=== PATIENT | female | born 2000 ===

== ENCOUNTER 2020-06-21 15:53 | Inpatient (IN) | payer MEDICAID, OTHER ==
[2020-06-21] MEDS ORDERED: LACTATED RINGERS 1,000 ML ONE (16:49)
[2020-06-21] MEDS ORDERED: SUCCINYLCHOLINE CHLORIDE 200 MG/10 ML INJ MDV ONE (17:20)
[2020-06-21] MEDS ORDERED: propofoL 200 MG/20 ML VIAL IV ONE (17:20)
[2020-06-21 17:23] LABS: Hematocrit 42.2 % (30.3-42.9); Hemoglobin 14.8 gm/dl (10.1-14.3); Mean Corpuscular HGB Conc 35 % (30-34); Mean Corpuscular Volume 86 fl (79-97); Platelet Count 153 K/mm3 (140-440); Red Blood Count 4.93 M/mm3 (3.65-5.03); Red Cell Distribution Width 15.5 % (13.2-15.2)
[2020-06-21] MEDS ORDERED: ONDANSETRON 4 MG/2 ML INJ ONE ×2 (17:26)
[2020-06-21] MEDS ORDERED: WATER FOR IRRIG STERILE 1,500 ML BOTTLE IR ONE (17:28)
[2020-06-21] MEDS ORDERED: SODIUM CHLORIDE 0.9% IRR 1,500 ML BOTTLE IR ONE (17:28)
[2020-06-21] MEDS ORDERED: HYDROmorphone 1 MG/1 ML INJ ONE ×2 (17:34)
[2020-06-21] MEDS ORDERED: OXYTOCIN DRIP 60,000 MILLIUNITS/1,000 ML BAG IV ONE (17:34)
[2020-06-21] MEDS ORDERED: METHYLERGONOVINE MALEATE 0.2 MG/ML VIAL IM ONE (17:38)
[2020-06-21] MEDS ORDERED: ROCURONIUM 50 MG/5 ML INJ IV ONE (17:43)
[2020-06-21] MEDS ORDERED: miSOPROStol 200 MCG TAB ONE (17:44)
[2020-06-21] MEDS ORDERED: BUPIVACAINE/PF (0.5%) 5 MG/1 ML 30 ML VIAL INFILTRATI ONE (17:51)
[2020-06-21] MEDS ORDERED: dexAMETHasone 20 MG/5 ML VIAL ONE (17:51)
[2020-06-21] MEDS ORDERED: OXYTOCIN 10 UNIT/1 ML INJ ONE (17:52)
[2020-06-21] MEDS ORDERED: NEOSTIGMINE 10MG/10 ML INJ MDV ONE (18:04)
[2020-06-21] MEDS ORDERED: GLYCOPYRROLATE 0.4 MG/2 ML INJ ONE (18:04)
--- NOTE | 2020-06-21 18:08 | History and Physical Report ---
History of Present Illness Date of examination: 06/21/20 Date of admission: 06/21/20 17:22 History of present illness: 20y/o @ 39+3 weeks who presents to L&D with irregular contractions. While under observation, the tracing demonstrated bradycardic episodes. The patient course is complicated by STD exposure, glucose intolerance, and marginal cord insertion. She denies any vaginal bleeding or leakage of fluid. Past History Past Medical History: no pertinent history Past Surgical History: no surgical history Social history: single - Obstetrical History Expected Date of Delivery: 06/25/20 Actual Gestation: 39 Week(s) 5 Day(s) : 2 Para: 0 Hx # Term Pregnancies: 0 Number of Pregnancies: 0 Spontaneous Abortions: 1 Induced : 0 Number of Living Children: 0 Medications and Allergies Allergies Allergy/AdvReac Type Severity Reaction Status Date / Time Penicillins Allergy Rash Verified 06/21/20 16:25 Home Medications Medication Instructions Recorded Confirmed Last Taken Type Ipratropium/Albuterol Sulfate 2 puff IH PRN 06/21/20 06/21/20 06/14/20 History Vitamin 1 tab PO DAILY 06/21/20 06/21/20 06/21/20 09:00 History ZyrTEC 10mg cap 1 tab PO DAILY PRN 06/21/20 06/21/20 06/21/20 09:00 History Ibuprofen [Motrin] 800 mg PO Q8HR PRN #60 tablet 06/22/20 Unknown Rx oxyCODONE /ACETAMINOPHEN [Percocet 1 tab PO Q6HR PRN #30 tablet 06/22/20 Unknown Rx 5/325] Review of Systems Genitourinary: pelvic pain, contractions, no leakage of fluid - Vital Signs Vital signs: Vital Signs Pulse BP 82 129/85 06/21/20 16:21 06/21/20 16:21 Temp Pulse Resp BP Pulse Ox 98.5 F 106 H 18 131/82 100 06/21/20 16:23 06/21/20 17:19 06/21/20 16:23 06/21/20 16:43 06/21/20 17:19 - Physical Exam Breasts: Positive: deferred Cardiovascular: Regular rate Lungs: Positive: Clear to auscultation Abdomen: Positive: normal appearance Results Result Diagrams: 04/17/21 05:56 Abnormal lab results 06/21/20 Range/Units 17:00 WBC 14.0 H (4.5-11.0) K/mm3 Hgb 14.8 H (10.1-14.3) gm/dl MCHC 35 H (30-34) % RDW 15.5 H (13.2-15.2) % All other labs normal. Assessment and Plan - Patient Problems (1) Non-reassuring electronic monitoring tracing Current Visit: Yes Status: Acute Plan to address problem: patient taken emergent for a primary delivery (2) bradycardia Current Visit: Yes Status: Acute
--- NOTE | 2020-06-21 18:10 | Procedure Note ---
OB Delivery Note - Delivery Date of Delivery: 06/21/20 Surgeon: GRABIEL BURKS Estimated blood loss: other (800 mL) - Section Preop diagnosis: nonreassuring FHR tracing Postop diagnosis: same section procedure: section, primary low transverse Disposition: PACU Complications: none - A at 1 minute: 6 at 5 minutes: 6 (apgars 6/6/8 weight 5lbs 2oz) Infant Gender: Male (Weight 5 pounds 2 ounces)
[2020-06-21] MEDS ORDERED: NALOXONE 0.4 MG/1 ML INJ IV PRN ×2 (18:14→19:24)
[2020-06-21] MEDS ORDERED: WITCH HAZEL/ GLYCERIN PAD TP PRN (18:14)
[2020-06-21] MEDS ORDERED: LANOLIN/ZINC/DIMETHICONE (LANSINOH) 7 GM TP PRN (18:14)
--- NOTE | 2020-06-21 18:14 | Operative Report ---
Operative Report Operative Report: Date of surgery: June 21, 2020 Preoperative diagnosis: at 39+3 weeks; nonreassuring heart rate tracing; late decelerations Postoperative diagnosis: Same as above Procedure: Primary low transverse delivery; emergent Surgeon: Avis Juan M.D. Anesthesia: General endotracheal anesthesia Estimated blood loss: 600 mL IV fluids: 800 mL Urine output: 100 mL Findings: Liveborn male weight 5 pounds 2 ounces with apgars of 6/6/8 Indications: 20-year-old -0-1-0 at 39+3 weeks who presents with irregular uterine contractions. During observation in triage the patient was noted to have multiple late decelerations. The patient was taken for an emergent montserrat arean delivery. Procedure: The patient was taken to the operating room and given general anesthesia without complication. She was prepped and draped in a normal sterile fashion. A Pfannenstiel skin incision was made down to layer the fascia which was nicked in the midline extended laterally with the Bovie cautery. The superior aspect of the rectus fascia was grasped with Gheens clamps x2 and the rectus muscles off sharply. This was done in inferior fashion as well. The rectus muscle midline and peritoneum entered bluntly. An Tiburcio retractor was then inserted. A bladder blade was placed. The vesicouterine peritoneum was then entered sharply with Metzenbaum scissors. A bladder flap was created digitally. A low transverse uterine incision was then made and extended digitally. There was thick meconium stained fluid fluid upon entry into the uterine cavity. The head was delivered through the incision with fundal pressure. The cord was clamped and cut x2 and was immediately passed off to pediatrics. The placenta was then manually extracted. The uterus was then exteriorized and cleared of clots and debris. The uterine incision was then closed in a running locked fashion with 0 Vicryl additional imbricating stitch was applied for 2 layer closure. Additional [id number] stitches were placed for hemostasis. The posterior cul-de-sac was then copiously irrigated. The uterus was replaced back into the abdomen and pelvis were the gutters were then irrigated. The Tiburcio retractor was then removed. The peritoneum was then reapproximated with 3-0 Vicryl incorporating the rectus muscle. The fascia was then closed with 0 Vicryl in a running fashion. The skin was then reapproximated with 3-0 Monocryl on a Lele needle subcuticular fashion. Steri-Strips to place across the incision and a Crede procedures performed at the end of the surgery. A pressure dressing was applied to the incision. The surgery productive of a liveborn male infant with Apgars of 6/6/8 and weight 5 pounds 2 ounces. The patient was taken to the recovery room in stable condition. All sponge laps and needle counts correct x2.
[2020-06-21] MEDS ORDERED: miSOPROStol 200 MCG TAB PR ONE (18:15)
[2020-06-21] MEDS ORDERED: MAGNESIUM HYDROXIDE (MOM) ORAL LIQD UDC PO PRN (18:15)
[2020-06-21] MEDS ORDERED: MORPHINE 4 MG/1 ML INJ IV PRN (18:15)
[2020-06-21] MEDS ORDERED: OXYTOCIN DRIP 30 UNITS/500 ML BAG IV SCH (19:00)
--- NOTE | 2020-06-21 19:23 | Anesthesia Day of Surgery ---
Anesthesia Day of Surgery - Day of Surgery Patient Examined: Yes Patient H&P Reviewed: Yes Patient is NPO: Yes Beta Blockers: No Cardiac Clearance: No Pulmonary Clearance: No Shabbir's Test: N/A
[2020-06-21] MEDS ORDERED: HYDROmorphone 1 MG/1 ML INJ IV PRN (19:24)
[2020-06-21] MEDS ORDERED: ONDANSETRON 4 MG/2 ML INJ IV PRN (19:24)
--- NOTE | 2020-06-21 19:24 | Anesthesia Consultation ---
Anesthesia Consult and Med Hx Date of service: 06/21/20 - Airway Anesthetic Teeth Evaluation: Good ROM Head & Neck: Adequate Mental/Hyoid Distance: Adequate Mallampati Class: Class II Intubation Access Assessment: Good - Pulmonary Exam CTA: Yes - Cardiac Exam Cardiac Exam: RRR - Pre-Operative Health Status ASA Pre-Surgery Classification: ASA2, Emergency Proposed Anesthetic Plan: General - Pulmonary Hx Smoking: No Hx Asthma: Yes Hx Respiratory Symptoms: No SOB: No COPD: No Home Oxygen Therapy: No Hx Pneumonia: No Hx Sleep Apnea: No - Cardiovascular System Hx Hypertension: No Hx Coronary Artery Disease: No Hx Heart Attack/AMI: No Hx Angina: No Hx Percutaneous Transluminal Coronary Angioplasty (PTCA): No Hx Cardia Arrhythmia: No Hx Pacemaker: No Hx Internal Defibrillator: No Hx Valvular Heart Disease: No Hx Heart Murmur: No Hx Peripheral Vascular Disease: No - Central Nervous System Hx Neuromuscular Disorder: No Hx Seizures: No CVA: No Hx Back Pain: No Hx Psychiatric Problems: No - Gastrointestinal Hx Ulcer: No Hx Gastroesophageal Reflux Disease: Yes - Endocrine Hx Renal Disease: No Hx End Stage Renal Disease: No Hx Cirrhosis: No Hx Liver Disease: No Hx Insulin Dependent Diabetes: No Hx Non-Insulin Dependent Diabetes: No Hx Thyroid Disease: No Hx Hypothyroidism: No Hx Hyperthyroidism: No - Hematic Hx Anemia: No Hx Sickle Cell Disease: No - Other Systems Hx Alcohol Use: No Hx Substance Use: No Hx Cancer: No Hx Obesity: Yes
--- NOTE | 2020-06-21 19:42 | Progress Note ---
Objective - Constitutional Vitals: Vital Signs - 12hr 06/21/20 06/21/20 06/21/20 16:21 16:23 16:28 Temperature 98.5 F Pulse Rate 82 97 H 95 H Respiratory 18 Rate Blood Pressure 129/85 O2 Sat by Pulse 98 98 Oximetry 06/21/20 06/21/20 06/21/20 16:33 16:38 16:43 Temperature Pulse Rate 83 83 91 H Respiratory Rate Blood Pressure 131/82 O2 Sat by Pulse 99 99 98 Oximetry 06/21/20 06/21/20 06/21/20 16:48 16:53 16:57 Temperature Pulse Rate 90 91 H 94 H Respiratory Rate Blood Pressure O2 Sat by Pulse 99 98 93 Oximetry 06/21/20 06/21/20 06/21/20 16:58 17:13 17:14 Temperature Pulse Rate 83 94 H Respiratory Rate Blood Pressure O2 Sat by Pulse 98 91 100 Oximetry 06/21/20 17:19 Temperature Pulse Rate 106 H Respiratory Rate Blood Pressure O2 Sat by Pulse 100 Oximetry - Labs CBC & Chem 7: 06/21/20 17:00 Labs: Abnormal lab results 06/21/20 Range/Units 17:00 WBC 14.0 H (4.5-11.0) K/mm3 Hgb 14.8 H (10.1-14.3) gm/dl MCHC 35 H (30-34) % RDW 15.5 H (13.2-15.2) % Regional Anesthesia Block - Regional Anesthesia Block Start Time: 19:04 Stop Time: 19:06 Performed By:: ROBERT KENNEDY Procedure: Patient consented for TAP block for post surgical pain management. Patient identified, monitors placed, and time out performed. TAP identified bilaterally via ultrasound. Skin prepped bilaterally and [22g stimuplex] needle advanced to the TAP. [Marcaine 0.22% 35ml] injected under ultrasound guidance on the [left] side. [Marcaine 0.22% 35ml] injected under ultrasound guidance on the [right] side. Negative aspiration every 5mL, No change in heart rate or rhythm. Patient tolerated the procedure well. No apparent complications seen.
[2020-06-21] MEDS: D5W/LACTATED RINGERS 1,000 ML IV SCH (22:24)
[2020-06-22] MEDS: KETOROLAC 30 MG/1 ML INJ IV PRN ×2 (04:12→10:36)
[2020-06-22] MEDS: D5W/LACTATED RINGERS 1,000 ML IV SCH (05:01)
[2020-06-22 06:28] LABS: Hematocrit 34.9 % (30.3-42.9); Hemoglobin 12.1 gm/dl (10.1-14.3)
--- NOTE | 2020-06-22 06:42 | Post Anesthesia Evaluation ---
- Post Anesthesia Evaluation Patient Participated: Yes Airway Patent: Yes Stable Respiratory Function: Yes Nausea/Vomiting: No Temp > 96.8F: Yes Pain Manageable: Yes Adequeate Hydration: Yes Anesthesia Complications: No Block Receding Appropriately: Yes Patient on Ventilator: No
--- NOTE | 2020-06-22 13:19 | Progress Note ---
Assessment and Plan - Patient Problems (1) delivery delivered Current Visit: Yes Status: Acute Plan to address problem: Routine postoperative care Subjective - Subjective Date of service: 06/22/20 Interval history: Patient is postop day status post an emergent delivery for nonreassuring heart rate tracing. The patient reports feeling well. She has had positive flatus. She is tolerating clear diet without complication. Patient reports: appetite normal, voiding normally, pain well controlled : doing well Objective - Vital Signs Latest vital signs: Vital Signs Temp Pulse Resp BP BP Pulse Ox 06/22/20 12:56 98.6 F 82 18 130/76 98 06/22/20 10:36 20 06/22/20 09:00 98.0 F 104 H 18 122/81 92 06/22/20 04:12 20 06/22/20 04:08 97.9 F 81 18 111/73 97 06/22/20 01:03 98.2 F 67 18 117/77 98 06/21/20 20:25 97.9 F 66 20 100 06/21/20 19:25 72 13 113/75 100 06/21/20 19:10 67 12 112/70 100 06/21/20 18:50 69 10 L 121/76 100 06/21/20 18:40 65 15 111/64 99 06/21/20 18:35 72 22 110/72 98 06/21/20 18:30 73 16 108/73 99 06/21/20 18:25 98.0 F 74 16 109/65 96 06/21/20 17:19 106 H 100 06/21/20 17:14 94 H 100 06/21/20 17:13 91 06/21/20 16:58 83 98 06/21/20 16:57 94 H 93 06/21/20 16:53 91 H 98 06/21/20 16:48 90 99 06/21/20 16:43 91 H 131/82 98 06/21/20 16:38 83 99 06/21/20 16:33 83 99 06/21/20 16:28 95 H 98 06/21/20 16:23 98.5 F 97 H 18 98 06/21/20 16:21 82 129/85 Intake and Output 06/21/20 06/22/20 06/22/20 22:59 06:59 14:59 Intake Total 1500 1427.083 Output Total 350 1700 Balance 1150 -272.917 Intake: IV 1500 827.083 D5lr 1,000 ml @ 125 mls/ 827.083 hr IV DIRECT CONSTANTINE Rx#: [id number] Oral 600 Output: Urine 350 1700 Indwelling Catheter 1700 Other: Total, Intake Amount 240 Total, Output Amount 400 Weight 83.007 kg - Exam Incision: Present: dressed - Labs Labs: Abnormal lab results 06/21/20 Range/Units 17:00 WBC 14.0 H (4.5-11.0) K/mm3 Hgb 14.8 H (10.1-14.3) gm/dl MCHC 35 H (30-34) % RDW 15.5 H (13.2-15.2) %
[2020-06-22] MEDS: oxyCODONE /ACETAMINOPHEN 5-325MG TAB PO PRN (17:58)
[2020-06-23] MEDS: IBUPROFEN 600 MG TAB PO PRN ×2 (00:47→18:20)
--- NOTE | 2020-06-23 10:52 | Progress Note ---
Assessment and Plan - Patient Problems (1) Non-reassuring electronic monitoring tracing Current Visit: Yes Status: Acute Plan to address problem: patient doing well discharge home (2) bradycardia Current Visit: Yes Status: Acute Subjective - Subjective Date of service: 06/23/20 Interval history: Patient without complaints. Tolerating diet. Found to be covid positive. No respiratory issues Patient reports: appetite normal, voiding normally, pain well controlled : doing well Objective - Vital Signs Latest vital signs: Vital Signs Temp Pulse Resp BP BP Pulse Ox 06/23/20 08:58 97.6 F 74 20 113/74 100 06/23/20 01:30 97.7 F 82 18 103/63 98 06/22/20 17:58 20 06/22/20 16:25 98.8 F 76 18 135/82 98 06/22/20 12:56 98.6 F 82 18 130/76 98 Intake and Output 06/22/20 06/23/20 06/23/20 22:59 06:59 14:59 Intake Total 240 360 240 Balance 240 360 240 Intake: Oral 240 360 240 Other: Total, Intake Amount 240 240 240 # Voids Indwelling Catheter 1 1 Void 1 1 - Exam Abdomen: Present: normal appearance, soft - Labs Labs: Abnormal lab results 06/22/20 Range/Units Unknown Coronavirus (PCR) Positive A (Negative)
--- NOTE | 2020-06-23 10:53 | Discharge Summary ---
Providers - Providers Date of Admission: 06/21/20 17:22 Date of discharge: 06/23/20 Attending physician: GRABIEL BURKS Primary care physician: GRABIEL BURKS Hospitalization Reason for admission: other ( distress) Delivery: Procedure: section, primary low transverse Incision: normal Discharge diagnosis: IUP at term delivered Hospital course: Patient presented to triage with bradycardia. She was taken emergently for a primary . Covid positive. Postop uneventful Condition at discharge: Good Disposition: DC-01 TO HOME OR SELFCARE - Discharge Diagnoses (1) Non-reassuring electronic monitoring tracing Status: Acute (2) bradycardia Status: Acute Plan - Discharge Medications Prescriptions: Ibuprofen [Motrin] 800 mg PO Q8HR PRN #60 tablet PRN Reason: Pain , Severe (7-10) oxyCODONE /ACETAMINOPHEN [Percocet 5/325] 1 tab PO Q6HR PRN #30 tablet PRN Reason: Pain - Provider Discharge Summary Activity: no sex for 6 weeks, no heavy lifting 4 weeks, no strenuous exercise Diet: routine Instructions: routine Additional instructions: [] Smoking cessation referral if applicable(refer to patient education folder for contact #) [] Refer to [facility] Booklet Call your doctor immediately for: * Fever > 100.5 * Heavy vaginal bleeding ( >1 pad per hour) * Severe persistent headache * Shortness of breath * Reddened, hot, painful area to leg or breast * schedule postop in 2 weeks - Follow up plan
[2020-06-23] MEDS: oxyCODONE /ACETAMINOPHEN 5-325MG TAB PO PRN (12:20)
[2020-06-23 18:55] VITALS: BP 122/75
== END 2020-06-23 20:28 | disposition home or self-care (01) | DRG 765 ==
LOC: TRG 15:53 → APU 15:54 → LD 17:12 → TRG 17:21 → LD 17:22 → OB 19:41
PROVIDERS: ADMIT Obstetrics & Gynecology; ATTEND Obstetrics & Gynecology
PROC: 10D00Z1 Extraction of Products of Conception, Low, Open Approach (ICD-10-PCS; principal; 2020-06-21)
DX: O76 Abnormality in fetal heart rate and rhythm complicating labor and delivery (principal); U07.1 COVID-19; O98.52 Other viral diseases complicating childbirth; O99.214 Obesity complicating childbirth; K21.9 Gastro-esophageal reflux disease without esophagitis; O99.62 Diseases of the digestive system complicating childbirth; Z37.0 Single live birth; Z3A.39 39 weeks gestation of pregnancy
CPT/HCPCS: 36415; 59025; 85014; 85018; 85027; 86592; 86850; 86900; 86901; 88307; 96360; G0378; J0330; J1100; J1170; J1885; J2405; J2590; J2704; J2710; J3490; J7120; J7121; U0003

== ENCOUNTER 2021-11-24 14:42 | Inpatient (IN) | payer OTHER ==
[2021-11-24] MEDS ORDERED: LACTATED RINGERS 1,000 ML IV ONE (15:57)
[2021-11-24] MEDS ORDERED: BETAMET ACET/BETAMET NA PH 6 MG/ML INJ 5 ML MDV IM SCH (18:00)
[2021-11-24] MEDS ORDERED: SIMETHICONE 80 MG CHEW TAB PO PRN (18:14)
[2021-11-24] MEDS ORDERED: ACETAMINOPHEN 325 MG TAB PO PRN (18:14)
[2021-11-24] MEDS ORDERED: ONDANSETRON 4 MG/2 ML INJ IV PRN (18:14)
[2021-11-24] MEDS ORDERED: SODIUM CHLORIDE NASAL SPRAY 44ML NS PRN (18:14)
[2021-11-24] MEDS ORDERED: DOCUSATE SODIUM 100 MG CAP PO PRN (18:14)
[2021-11-24] MEDS ORDERED: LACTATED RINGERS 1,000 ML IV SCH (19:00)
[2021-11-24 19:18] LABS: Bacteria,Urine 1+ /HPF (Negative); Mucus,Urine 3+ /HPF
[2021-11-24 19:20] LABS: Color,Urine Yellow (Yellow)
--- NOTE | 2021-11-24 20:06 | Ultrasound Report ---
ULTRASOUND OBSTETRIC INDICATION / CLINICAL INFORMATION: c/o leaking. - Clinical Gestational Age (GA) in weeks, days: 35 weeks 2 days TECHNIQUE: Transabdominal. COMPARISON: None available. FINDINGS: Single intrauterine . Heart Rate: 129 beats per minute. Position: cephalic. Amniotic Fluid Volume: normal Amniotic Fluid Index (MISTI) in cm (if calculated): 12.6 cm. Maternal Adnexa: No significant abnormality. BREATHING MOVEMENT = 2 GROSS BODY MOVEMENT = 2 TONE = 2 QUALITATIVE AMNIOTIC FLUID VOLUME = 2 TOTAL BIOPHYSICAL SCORE = 8/8 IMPRESSION: 1. Single, living intrauterine with normal amniotic fluid index. No acute process. 2. Normal biophysical profile score of 8/8. Signer Name: Saeed Fulton MD Signed: 11/24/2021 8:02 PM Workstation Name: [id number]
[2021-11-24] MEDS: ERYTHROMYCIN LACTOBIONATE 250 MG in SODIUM CHLORIDE 0.9% 100 ML IV SCH (20:14)
[2021-11-24 20:27] LABS: Basophils # (Auto) 0.1 K/mm3 (0.0-0.1); Basophils % (Auto) 0.8 % (0.0-1.8); Eosinophils # (Auto) 0.1 K/mm3 (0.0-0.4); Eosinophils % (Auto) 0.8 % (0.0-4.3); Hematocrit 36.4 % (30.3-42.9); Hemoglobin 11.8 gm/dl (10.1-14.3); Lymphocytes # (Auto) 1.5 K/mm3 (1.2-5.4); Lymphocytes % (Auto) 14.3 % (13.4-35.0); Mean Corpuscular HGB Conc 33 % (30-34); Mean Corpuscular Volume 77 fl (79-97); Monocytes # (Auto) 0.6 K/mm3 (0.0-0.8); Monocytes % (Auto) 5.3 % (0.0-7.3); Platelet Count 196 K/mm3 (140-440); Red Cell Distribution Width 14.8 % (13.2-15.2)
--- NOTE | 2021-11-24 21:06 | History and Physical Report ---
History of Present Illness Date of examination: 11/24/21 Date of admission: 11/24/21 18:14 Chief complaint: My water broke History of present illness: Pt is a 21 year old [place] 12/07/21 at 35w2d who present with leakage of fluid since 8 am on 11/24/21. She denies contractions and vaginal bleeding. She has had care at [facility] since transfer into care 20 wks complicated by previous section, glucose intolerance and asthma. Her GB S status is unknown. She does report a penicillin allergy causing sensation that her throat is closi ng. Past History Past Medical History: asthma, other (eczema ) Past Surgical History: section Social history: no significant social history, - Obstetrical History Expected Date of Delivery: 12/27/21 Actual Gestation: 35 Week(s) 3 Day(s) : 3 Para: 1 Hx # Term Pregnancies: 1 Number of Pregnancies: 0 Spontaneous Abortions: 1 Induced : 0 Number of Living Children: 1 Medications and Allergies Allergies Allergy/AdvReac Type Severity Reaction Status Date / Time Penicillins Allergy Rash Verified 06/21/20 16:25 Home Medications Medication Instructions Recorded Confirmed Last Taken Type Ipratropium/Albuterol Sulfate 2 puff IH PRN 06/21/20 06/21/20 06/14/20 History Vitamin 1 tab PO DAILY 06/21/20 06/21/20 06/21/20 09:00 History ZyrTEC 10mg cap 1 tab PO DAILY PRN 06/21/20 06/21/20 06/21/20 09:00 History Ibuprofen [Motrin] 800 mg PO Q8HR PRN #60 tablet 06/22/20 Unknown Rx oxyCODONE /ACETAMINOPHEN [Percocet 1 tab PO Q6HR PRN #30 tablet 06/22/20 Unknown Rx 5/325] Active Meds: Active Medications Acetaminophen (Acetaminophen 325 Mg Tab) 650 mg PO Q4H PRN PRN Reason: Pain MILD(1-3)/Fever >100.5/LORD Betamethasone Acet/Betameth SodPhos (Betamet Acet/Betamet Na Ph 6 Mg/Ml Inj 5 Ml Mdv) 12 mg IM Q24HR CONSTANTINE Stop: 11/25/21 10:01 Last Admin: 11/24/21 18:20 Dose: 12 mg Clindamycin HCl (Clindamycin 300 Mg Cap) 300 mg PO Q6HR CONSTANTINE; Protocol Docusate Sodium (Docusate Sodium 100 Mg Cap) 100 mg PO Q12H PRN PRN Reason: Constipation Erythromycin (Erythromycin Base [address]) 250 mg PO Q8HR CONSTANTINE; Protocol Stop: 12/01/21 21:59 Clindamycin HCl (Cleocin 900 Mg/50 Ml) 900 mg in 50 mls @ 100 mls/hr IV Q8H CONSTANTINE; Protocol Stop: 11/26/21 12:29 Last Admin: 11/24/21 19:39 Dose: 100 mls/hr Erythromycin Lactobionate 250 (mg/ Sodium Chloride) 100 mls @ 100 mls/hr IV Q6H CONSTANTINE; Protocol Stop: 11/26/21 15:29 Last Admin: 11/24/21 20:14 Dose: 100 mls/hr Lactated Ringer's (Lactated Ringers) 1,000 mls @ 125 mls/hr IV DIRECT CONSTANTINE Multivitamins/Iron/Calcium ( [id number]-Uz Fumarate-Folic Acid Vit Tab) 1 each PO QDAY CONSTANTINE Nitrofurantoin Macrocrystals (Nitrofurantoin Monohyd/M-Cryst 100 Mg Cap) 100 mg PO Q12HR CONSTANTINE Ondansetron HCl (Ondansetron 4 Mg/2 Ml Inj) 4 mg IV Q6H PRN PRN Reason: Nausea And Vomiting Simethicone (Simethicone 80 Mg Chew Tab) 80 mg PO Q6H PRN PRN Reason: Gas pain Sodium Chloride (Sodium Chloride Nasal [place] 44ml) 2 spray NS Q4H PRN PRN Reason: Congestion Review of Systems All systems: negative - Vital Signs Vital signs: Vital Signs Pulse BP 86 113/77 11/24/21 15:44 11/24/21 15:44 Temp Pulse Resp BP Pulse Ox 98.4 F 87 17 108/62 97 11/24/21 19:36 11/24/21 20:58 11/24/21 19:36 11/24/21 20:37 11/24/21 20:58 - Physical Exam Breasts: Positive: deferred Abdomen: Positive: soft (gravid) - Obstetrical FHR: auscultation normal Uterine Contraction Monitor Mode: External Cervical Dilatation: 0 (per RN ) Uterine Contraction Pattern: Irregular Uterine Tone Measurement Phase: Resting Uterine Contraction Intensity: Mild Results Result Diagrams: 11/24/21 19:58 Abnormal lab results 11/24/21 11/24/21 11/24/21 Range/Units 16:10 16:10 19:58 MCV 77 L (79-97) fl MCH 25 L (28-32) pg Seg Neutrophils % 78.8 H (40.0-70.0) % Seg Neutrophils # 8.5 H (1.8-7.7) K/mm3 Urine WBC (Auto) 18.0 H (0.0-6.0) /HPF Membranes Rupture Positive A (Negative) All other labs normal. Assessment and Plan A: IUP at 35w2d PPROM Previous x 1- desires TOLAC Asthma Glucose Intolerance Cystitis GBS unknown- PCN allergy P: Admit to antepartum service Begin Latency antibiotics Initiate Betamethasone course Initiate Macrobid Continuous monitoring Closely monitor maternal and status
[2021-11-25] MEDS: ERYTHROMYCIN LACTOBIONATE 250 MG in SODIUM CHLORIDE 0.9% 100 ML IV SCH ×4 (02:08→23:26)
[2021-11-25] MEDS: NITROFURANTOIN MONOHYD/M-CRYST 100 MG CAP PO SCH ×3 (02:09→22:12)
[2021-11-25] MEDS: PRENATAL VIT27-FE FUMARATE-FOLIC ACID VIT TAB PO SCH (11:29)
--- NOTE | 2021-11-25 12:55 | Progress Note ---
Assessment and Plan - Patient Problems (1) premature rupture of membranes Current Visit: Yes Status: Acute Plan to address problem: Expectant management Continue antibiotic therapy will proceed with delivery by 36 weeks likely via Subjective - Subjective Date of service: 11/25/21 Interval history: 21-year-old -0-1-1 at 35+3 weeks admitted for premature rupture membranes. Patient is receiving steroid therapy and antibiotics. Discussed the plan of care with the patient to proceed with delivery for signs and symptoms of chorioamnionitis. Patient will be delivered by 36 weeks. Patient reports: no new complaints Objective - Vital Signs Vital Signs: Vital Signs - 12hr 11/25/21 11/25/21 11/25/21 00:55 01:00 01:05 Temperature Pulse Rate 73 85 77 Respiratory Rate Blood Pressure Blood Pressure [Left] O2 Sat by Pulse 95 95 96 Oximetry O2 Sat by Pulse Oximetry [ Bilateral Throughout] 11/25/21 11/25/21 11/25/21 01:10 01:15 01:19 Temperature Pulse Rate 83 78 88 Respiratory Rate Blood Pressure Blood Pressure [Left] O2 Sat by Pulse 96 96 94 Oximetry O2 Sat by Pulse Oximetry [ Bilateral Throughout] 11/25/21 11/25/21 11/25/21 01:20 01:25 01:30 Temperature Pulse Rate 78 69 88 Respiratory Rate Blood Pressure Blood Pressure [Left] O2 Sat by Pulse 97 95 97 Oximetry O2 Sat by Pulse Oximetry [ Bilateral Throughout] 11/25/21 11/25/21 11/25/21 01:35 01:36 01:40 Temperature 98.1 F Pulse Rate 68 68 72 Respiratory 18 Rate Blood Pressure 111/58 Blood Pressure 111/58 [Left] O2 Sat by Pulse 96 97 Oximetry O2 Sat by Pulse Oximetry [ Bilateral Throughout] 11/25/21 11/25/21 11/25/21 01:45 01:50 01:55 Temperature Pulse Rate 68 74 74 Respiratory Rate Blood Pressure Blood Pressure [Left] O2 Sat by Pulse 95 95 95 Oximetry O2 Sat by Pulse Oximetry [ Bilateral Throughout] 11/25/21 11/25/21 11/25/21 01:58 02:00 02:04 Temperature Pulse Rate 74 71 73 Respiratory Rate Blood Pressure Blood Pressure [Left] O2 Sat by Pulse 94 95 94 Oximetry O2 Sat by Pulse Oximetry [ Bilateral Throughout] 11/25/21 11/25/2111/25/22 02:05 02:10 02:15 Temperature Pulse Rate 76 81 93 H Respiratory Rate Blood Pressure Blood Pressure [Left] O2 Sat by Pulse 95 97 98 Oximetry O2 Sat by Pulse Oximetry [ Bilateral Throughout] 11/25/21 11/25/21 11/25/21 02:20 02:27 02:32 Temperature Pulse Rate 96 H 80 93 H Respiratory Rate Blood Pressure Blood Pressure [Left] O2 Sat by Pulse 96 97 97 Oximetry O2 Sat by Pulse Oximetry [ Bilateral Throughout] 11/25/21 11/25/21 11/25/21 02:34 02:37 02:42 Temperature Pulse Rate 87 79 85 Respiratory Rate Blood Pressure 126/66 Blood Pressure [Left] O2 Sat by Pulse 97 97 Oximetry O2 Sat by Pulse Oximetry [ Bilateral Throughout] 11/25/21 11/25/21 11/25/21 02:47 02:52 02:57 Temperature Pulse Rate 79 81 85 Respiratory Rate Blood Pressure Blood Pressure [Left] O2 Sat by Pulse 97 98 98 Oximetry O2 Sat by Pulse Oximetry [ Bilateral Throughout] 11/25/21 11/25/21 11/25/21 03:02 03:07 03:12 Temperature Pulse Rate 76 78 93 H Respiratory Rate Blood Pressure Blood Pressure [Left] O2 Sat by Pulse 98 97 97 Oximetry O2 Sat by Pulse Oximetry [ Bilateral Throughout] 11/25/21 11/25/21 11/25/21 03:17 03:22 03:27 Temperature Pulse Rate 71 74 83 Respiratory Rate Blood Pressure Blood Pressure [Left] O2 Sat by Pulse 97 98 97 Oximetry O2 Sat by Pulse Oximetry [ Bilateral Throughout] 11/25/21 11/25/21 11/25/21 03:32 03:35 03:37 Temperature Pulse Rate 85 75 91 H Respiratory Rate Blood Pressure 113/54 Blood Pressure [Left] O2 Sat by Pulse 97 95 Oximetry O2 Sat by Pulse Oximetry [ Bilateral Throughout] 11/25/21 11/25/21 11/25/21 03:38 03:42 03:47 Temperature Pulse Rate 79 79 78 Respiratory Rate Blood Pressure Blood Pressure [Left] O2 Sat by Pulse 93 97 97 Oximetry O2 Sat by Pulse Oximetry [ Bilateral Throughout] 11/25/21 11/25/21 11/25/21 03:52 03:57 04:02 Temperature Pulse Rate 97 H 89 80 Respiratory Rate Blood Pressure Blood Pressure [Left] O2 Sat by Pulse 96 97 97 Oximetry O2 Sat by Pulse Oximetry [ Bilateral Throughout] 11/25/21 11/25/21 11/25/21 04:07 04:08 04:12 Temperature Pulse Rate 84 85 80 Respiratory Rate Blood Pressure Blood Pressure [Left] O2 Sat by Pulse 95 94 96 Oximetry O2 Sat by Pulse Oximetry [ Bilateral Throughout] 11/25/21 11/25/21 11/25/21 04:17 04:22 04:25 Temperature Pulse Rate 73 73 79 Respiratory Rate Blood Pressure Blood Pressure [Left] O2 Sat by Pulse 95 95 94 Oximetry O2 Sat by Pulse Oximetry [ Bilateral Throughout] 11/25/21 11/25/21 11/25/21 04:27 04:30 04:32 Temperature Pulse Rate 80 70 106 H Respiratory Rate Blood Pressure Blood Pressure [Left] O2 Sat by Pulse 95 94 96 Oximetry O2 Sat by Pulse Oximetry [ Bilateral Throughout] 11/25/21 11/25/21 11/25/21 04:35 04:36 04:37 Temperature 98.2 F Pulse Rate 102 H 87 80 Respiratory 17 Rate Blood Pressure 98/45 Blood Pressure 98/45 [Left] O2 Sat by Pulse 94 97 Oximetry O2 Sat by Pulse Oximetry [ Bilateral Throughout] 11/25/21 11/25/21 11/25/21 04:42 04:44 04:47 Temperature Pulse Rate 94 H 86 115 H Respiratory Rate Blood Pressure Blood Pressure [Left] O2 Sat by Pulse 97 94 95 Oximetry O2 Sat by Pulse Oximetry [ Bilateral Throughout] 11/25/21 11/25/21 11/25/21 04:50 04:52 04:57 Temperature Pulse Rate 84 100 H 93 H Respiratory Rate Blood Pressure Blood Pressure [Left] O2 Sat by Pulse 94 96 98 Oximetry O2 Sat by Pulse Oximetry [ Bilateral Throughout] 11/25/21 11/25/21 11/25/21 05:02 05:07 05:12 Temperature Pulse Rate 84 91 H 87 Respiratory Rate Blood Pressure Blood Pressure [Left] O2 Sat by Pulse 97 96 96 Oximetry O2 Sat by Pulse Oximetry [ Bilateral Throughout] 11/25/21 11/25/21 11/25/21 05:17 05:22 05:27 Temperature Pulse Rate 87 115 H 95 H Respiratory Rate Blood Pressure Blood Pressure [Left] O2 Sat by Pulse 97 96 98 Oximetry O2 Sat by Pulse Oximetry [ Bilateral Throughout] 11/25/21 11/25/21 11/25/21 05:32 05:35 05:37 Temperature Pulse Rate 104 H 86 105 H Respiratory Rate Blood Pressure 90/50 Blood Pressure [Left] O2 Sat by Pulse 97 97 Oximetry O2 Sat by Pulse Oximetry [ Bilateral Throughout] 11/25/21 11/25/21 11/25/21 05:42 05:47 05:52 Temperature Pulse Rate 88 97 H 77 Respiratory Rate Blood Pressure Blood Pressure [Left] O2 Sat by Pulse 97 97 98 Oximetry O2 Sat by Pulse Oximetry [ Bilateral Throughout] 11/25/21 11/25/21 11/25/21 05:57 06:02 06:07 Temperature Pulse Rate 78 80 77 Respiratory Rate Blood Pressure Blood Pressure [Left] O2 Sat by Pulse 97 96 97 Oximetry O2 Sat by Pulse Oximetry [ Bilateral Throughout] 11/25/21 11/25/21 11/25/21 06:12 06:17 06:22 Temperature Pulse Rate 84 83 89 Respiratory Rate Blood Pressure Blood Pressure [Left] O2 Sat by Pulse 96 98 97 Oximetry O2 Sat by Pulse Oximetry [ Bilateral Throughout] 11/25/21 11/25/21 11/25/21 06:27 06:31 06:32 Temperature Pulse Rate 77 76 79 Respiratory Rate Blood Pressure Blood Pressure [Left] O2 Sat by Pulse 95 94 95 Oximetry O2 Sat by Pulse Oximetry [ Bilateral Throughout] 11/25/21 11/25/21 11/25/21 06:35 06:37 06:41 Temperature Pulse Rate 76 79 79 Respiratory Rate Blood Pressure 93/55 Blood Pressure [Left] O2 Sat by Pulse 95 94 Oximetry O2 Sat by Pulse Oximetry [ Bilateral Throughout] 11/25/21 11/25/21 11/25/21 06:42 06:47 06:52 Temperature Pulse Rate 81 81 77 Respiratory Rate Blood Pressure Blood Pressure [Left] O2 Sat by Pulse 95 94 94 Oximetry O2 Sat by Pulse Oximetry [ Bilateral Throughout] 11/25/21 11/25/21 11/25/21 06:57 07:02 07:04 Temperature Pulse Rate 76 97 H 80 Respiratory Rate Blood Pressure Blood Pressure [Left] O2 Sat by Pulse 94 95 93 Oximetry O2 Sat by Pulse Oximetry [ Bilateral Throughout] 11/25/21 11/25/21 11/25/21 07:07 07:09 07:12 Temperature Pulse Rate 77 72 76 Respiratory Rate Blood Pressure Blood Pressure [Left] O2 Sat by Pulse 95 94 95 Oximetry O2 Sat by Pulse Oximetry [ Bilateral Throughout] 11/25/21 11/25/21 11/25/21 07:15 07:17 07:21 Temperature Pulse Rate 71 74 79 Respiratory Rate Blood Pressure Blood Pressure [Left] O2 Sat by Pulse 94 95 94 Oximetry O2 Sat by Pulse Oximetry [ Bilateral Throughout] 11/25/21 11/25/21 11/25/21 07:22 07:27 07:32 Temperature Pulse Rate 79 86 82 Respiratory Rate Blood Pressure Blood Pressure [Left] O2 Sat by Pulse 95 97 96 Oximetry O2 Sat by Pulse Oximetry [ Bilateral Throughout] 11/25/21 11/25/21 11/25/21 07:35 07:37 07:42 Temperature Pulse Rate 84 93 H 95 H Respiratory Rate Blood Pressure 85/50 Blood Pressure [Left] O2 Sat by Pulse 97 98 Oximetry O2 Sat by Pulse Oximetry [ Bilateral Throughout] 11/25/21 11/25/21 11/25/21 07:51 07:56 08:01 Temperature Pulse Rate 96 H 81 86 Respiratory Rate Blood Pressure Blood Pressure [Left] O2 Sat by Pulse 99 97 96 Oximetry O2 Sat by Pulse Oximetry [ Bilateral Throughout] 11/25/21 11/25/21 11/25/21 08:06 08:11 08:16 Temperature Pulse Rate 80 77 80 Respiratory Rate Blood Pressure Blood Pressure [Left] O2 Sat by Pulse 96 97 97 Oximetry O2 Sat by Pulse Oximetry [ Bilateral Throughout] 11/25/21 11/25/21 11/25/21 08:21 08:26 08:31 Temperature Pulse Rate 87 86 86 Respiratory Rate Blood Pressure Blood Pressure [Left] O2 Sat by Pulse 98 98 97 Oximetry O2 Sat by Pulse Oximetry [ Bilateral Throughout] 11/25/21 11/25/21 11/25/21 08:35 08:36 08:41 Temperature Pulse Rate 78 106 H 91 H Respiratory Rate Blood Pressure 119/56 Blood Pressure [Left] O2 Sat by Pulse 97 97 Oximetry O2 Sat by Pulse Oximetry [ Bilateral Throughout] 11/25/21 11/25/21 11/25/21 08:46 08:51 08:56 Temperature Pulse Rate 87 86 101 H Respiratory Rate Blood Pressure Blood Pressure [Left] O2 Sat by Pulse 98 96 97 Oximetry O2 Sat by Pulse Oximetry [ Bilateral Throughout] 11/25/21 11/25/21 11/25/21 09:01 09:06 09:11 Temperature Pulse Rate 92 H 85 95 H Respiratory Rate Blood Pressure Blood Pressure [Left] O2 Sat by Pulse 96 97 98 Oximetry O2 Sat by Pulse Oximetry [ Bilateral Throughout] 11/25/21 11/25/21 11/25/21 09:16 09:21 09:26 Temperature Pulse Rate 95 H 88 87 Respiratory Rate Blood Pressure Blood Pressure [Left] O2 Sat by Pulse 98 97 97 Oximetry O2 Sat by Pulse Oximetry [ Bilateral Throughout] 11/25/21 11/25/21 11/25/21 09:31 09:36 09:41 Temperature Pulse Rate 83 89 80 Respiratory Rate Blood Pressure 121/66 Blood Pressure [Left] O2 Sat by Pulse 98 97 99 Oximetry O2 Sat by Pulse 100 Oximetry [ Bilateral Throughout] 11/25/21 11/25/21 11/25/21 09:46 09:51 09:56 Temperature Pulse Rate 92 H 107 H 93 H Respiratory Rate Blood Pressure Blood Pressure [Left] O2 Sat by Pulse 98 98 97 Oximetry O2 Sat by Pulse Oximetry [ Bilateral Throughout] 11/25/21 11/25/21 11/25/21 10:01 10:06 10:11 Temperature Pulse Rate 80 89 94 H Respiratory Rate Blood Pressure Blood Pressure [Left] O2 Sat by Pulse 96 96 95 Oximetry O2 Sat by Pulse Oximetry [ Bilateral Throughout] 11/25/21 11/25/21 11/25/21 10:12 10:16 10:21 Temperature Pulse Rate 90 87 75 Respiratory Rate Blood Pressure Blood Pressure [Left] O2 Sat by Pulse 94 97 95 Oximetry O2 Sat by Pulse Oximetry [ Bilateral Throughout] 11/25/21 11/25/21 11/25/21 10:26 10:31 10:35 Temperature Pulse Rate 75 79 85 Respiratory Rate Blood Pressure 115/65 Blood Pressure [Left] O2 Sat by Pulse 97 96 Oximetry O2 Sat by Pulse Oximetry [ Bilateral Throughout] 11/25/21 11/25/21 11/25/21 10:36 10:41 10:46 Temperature Pulse Rate 85 85 91 H Respiratory Rate Blood Pressure Blood Pressure [Left] O2 Sat by Pulse 98 96 98 Oximetry O2 Sat by Pulse Oximetry [ Bilateral Throughout] 11/25/21 11/25/21 11/25/21 10:51 10:56 11:01 Temperature Pulse Rate 98 H 89 87 Respiratory Rate Blood Pressure Blood Pressure [Left] O2 Sat by Pulse 98 97 99 Oximetry O2 Sat by Pulse Oximetry [ Bilateral Throughout] 11/25/21 11/25/21 11/25/21 11:06 11:11 11:16 Temperature Pulse Rate 84 86 84 Respiratory Rate Blood Pressure Blood Pressure [Left] O2 Sat by Pulse 97 96 98 Oximetry O2 Sat by Pulse Oximetry [ Bilateral Throughout] 11/25/21 11/25/21 11/25/21 11:21 11:32 11:35 Temperature Pulse Rate 88 94 H 96 H Respiratory Rate Blood Pressure 107/58 Blood Pressure [Left] O2 Sat by Pulse 97 98 Oximetry O2 Sat by Pulse Oximetry [ Bilateral Throughout] 11/25/21 11/25/21 11/25/21 11:37 11:42 11:47 Temperature Pulse Rate 102 H 108 H 105 H Respiratory Rate Blood Pressure Blood Pressure [Left] O2 Sat by Pulse 98 98 97 Oximetry O2 Sat by Pulse Oximetry [ Bilateral Throughout] 11/25/21 11/25/21 11/25/21 11:52 11:57 12:02 Temperature Pulse Rate 114 H 103 H 91 H Respiratory Rate Blood Pressure Blood Pressure [Left] O2 Sat by Pulse 98 97 97 Oximetry O2 Sat by Pulse Oximetry [ Bilateral Throughout] 11/25/21 11/25/21 11/25/21 12:07 12:12 12:17 Temperature Pulse Rate 81 106 H 86 Respiratory Rate Blood Pressure Blood Pressure [Left] O2 Sat by Pulse 97 97 97 Oximetry O2 Sat by Pulse Oximetry [ Bilateral Throughout] 11/25/21 11/25/21 11/25/21 12:22 12:27 12:32 Temperature Pulse Rate 118 H 104 H 100 H Respiratory Rate Blood Pressure Blood Pressure [Left] O2 Sat by Pulse 97 98 98 Oximetry O2 Sat by Pulse Oximetry [ Bilateral Throughout] 11/25/21 11/25/21 11/25/21 12:34 12:37 12:42 Temperature Pulse Rate 88 100 H 105 H Respiratory Rate Blood Pressure 115/55 Blood Pressure [Left] O2 Sat by Pulse 98 97 Oximetry O2 Sat by Pulse Oximetry [ Bilateral Throughout] 11/25/21 11/25/21 12:47 12:52 Temperature Pulse Rate 101 H 88 Respiratory Rate Blood Pressure Blood Pressure [Left] O2 Sat by Pulse 97 96 Oximetry O2 Sat by Pulse Oximetry [ Bilateral Throughout] - Labs Labs: Abnormal Labs 11/24/21 11/24/21 11/24/21 16:10 16:10 19:58 MCV 77 L MCH 25 L Seg Neutrophils % 78.8 H Seg Neutrophils # 8.5 H Urine WBC (Auto) 18.0 H Membranes Rupture Positive A Laboratory Results - last 24 hr 11/24/21 11/24/21 11/24/21 16:10 16:10 19:58 WBC 10.7 RBC 4.70 Hgb 11.8 Hct 36.4 MCV 77 L MCH 25 L MCHC 33 RDW 14.8 Plt Count 196 Lymph % (Auto) 14.3 [place] % (Auto) 5.3 Eos % (Auto) 0.8 Baso % (Auto) 0.8 Lymph # (Auto) 1.5 [place] # (Auto) 0.6 Eos # (Auto) 0.1 Baso # (Auto) 0.1 Seg Neutrophils % 78.8 H Seg Neutrophils # 8.5 H Urine Color Yellow Urine Turbidity Hazy Specific [place] (Man) 1.025 Ur Protein (Man) 2+ Ur Ketones (Man) Negative Ur Nitrite (Man) Positive Ur Reducing Substances Not Reportable Urine Bilirubin (Man) Negative Urine Ictotest Not Reportable Leukocyte Esterase (Man) Small Urine WBC (Auto) 18.0 H Urine RBC (Auto) 4.0 U Epithel Cells (Auto) 7.0 Urine Bacteria (Auto) 1+ Urine RBC (Manual) Trace Urine Mucus 3+ Membranes Rupture Positive A SARS-CoV-2 (PCR) Blood Type Antibody Screen 11/24/21 11/25/21 21:50 10:31 WBC RBC Hgb Hct MCV MCH MCHC RDW Plt Count Lymph % (Auto) [place] % (Auto) Eos % (Auto) Baso % (Auto) Lymph # (Auto) [place] # (Auto) Eos # (Auto) Baso # (Auto) Seg Neutrophils % Seg Neutrophils # Urine Color Urine Turbidity Specific [place] (Man) Ur Protein (Man) Ur Ketones (Man) Ur Nitrite (Man) Ur Reducing Substances Urine Bilirubin (Man) Urine Ictotest Leukocyte Esterase (Man) Urine WBC (Auto) Urine RBC (Auto) U Epithel Cells (Auto) Urine Bacteria (Auto) Urine RBC (Manual) Urine Mucus Membranes Rupture SARS-CoV-2 (PCR) Negative Blood Type O POSITIVE Antibody Screen Negative
[2021-11-25] MEDS ORDERED: BETAMET ACET/BETAMET NA PH 6 MG/ML INJ 5 ML MDV IM ONE (18:27)
[2021-11-26] MEDS: ERYTHROMYCIN LACTOBIONATE 250 MG in SODIUM CHLORIDE 0.9% 100 ML IV SCH ×3 (06:11→18:14)
[2021-11-26] MEDS: NITROFURANTOIN MONOHYD/M-CRYST 100 MG CAP PO SCH (10:51)
[2021-11-26] MEDS: PRENATAL VIT27-FE FUMARATE-FOLIC ACID VIT TAB PO SCH (10:51)
[2021-11-26] MEDS ORDERED: SODIUM CHLORIDE 0.9% 1000 ML 1,000 ML ONE (11:53)
--- NOTE | 2021-11-26 15:09 | Progress Note ---
Assessment and Plan - Patient Problems (1) premature rupture of membranes Current Visit: Yes Status: Acute Plan to address problem: Expectant management Deliver for signs and symptoms of chorioamnionitis Will schedule delivery at 36 weeks Subjective - Subjective Date of service: 11/26/21 Interval history: 21-year-old -0-1-1 at 35+4 weeks admitted for premature rupture membranes. The patient is currently without any significant complaints. She is having some intermittent contractions but denies any vaginal bleeding. She remains afebrile. Patient reports: no new complaints Objective - Vital Signs Vital Signs: Vital Signs - 12hr 11/26/21 11/26/21 11/26/21 03:09 03:14 03:19 Temperature Pulse Rate 75 64 81 Respiratory Rate Blood Pressure Blood Pressure [Left] O2 Sat by Pulse 96 96 95 Oximetry 11/26/21 11/26/21 11/26/21 03:20 03:24 03:27 Temperature Pulse Rate 84 80 80 Respiratory Rate Blood Pressure Blood Pressure [Left] O2 Sat by Pulse 94 96 93 Oximetry 11/26/21 11/26/21 11/26/21 03:29 03:34 03:35 Temperature Pulse Rate 76 73 78 Respiratory Rate Blood Pressure 94/50 Blood Pressure [Left] O2 Sat by Pulse 95 96 Oximetry 11/26/21 11/26/21 11/26/21 03:39 03:44 03:49 Temperature Pulse Rate 59 L 61 56 L Respiratory Rate Blood Pressure Blood Pressure [Left] O2 Sat by Pulse 97 97 96 Oximetry 11/26/21 11/26/21 11/26/21 03:54 03:59 04:04 Temperature Pulse Rate 58 L 56 L 62 Respiratory Rate Blood Pressure Blood Pressure [Left] O2 Sat by Pulse 96 96 96 Oximetry 11/26/21 11/26/21 11/26/21 04:09 04:14 04:19 Temperature Pulse Rate 60 58 L 61 Respiratory Rate Blood Pressure Blood Pressure [Left] O2 Sat by Pulse 96 96 96 Oximetry 11/26/21 11/26/21 11/26/21 04:24 04:29 04:32 Temperature Pulse Rate 60 61 68 Respiratory Rate Blood Pressure Blood Pressure [Left] O2 Sat by Pulse 96 96 94 Oximetry 11/26/21 11/26/21 11/26/21 04:34 04:35 04:41 Temperature Pulse Rate 69 67 80 Respiratory Rate Blood Pressure 99/57 Blood Pressure [Left] O2 Sat by Pulse 90 99 Oximetry 11/26/21 11/26/21 11/26/21 04:46 04:51 04:56 Temperature Pulse Rate 82 74 68 Respiratory Rate Blood Pressure Blood Pressure [Left] O2 Sat by Pulse 96 97 96 Oximetry 11/26/21 11/26/21 11/26/21 05:01 05:06 05:11 Temperature Pulse Rate 67 73 74 Respiratory Rate Blood Pressure Blood Pressure [Left] O2 Sat by Pulse 98 98 97 Oximetry 11/26/21 11/26/21 11/26/21 05:16 05:21 05:26 Temperature Pulse Rate 73 76 69 Respiratory Rate Blood Pressure Blood Pressure [Left] O2 Sat by Pulse 96 98 98 Oximetry 11/26/21 11/26/21 11/26/21 05:31 05:35 05:36 Temperature Pulse Rate 82 77 76 Respiratory Rate Blood Pressure 78/45 Blood Pressure [Left] O2 Sat by Pulse 95 97 Oximetry 11/26/21 11/26/21 11/26/21 05:41 05:46 05:51 Temperature Pulse Rate 74 71 67 Respiratory Rate Blood Pressure Blood Pressure [Left] O2 Sat by Pulse 97 97 98 Oximetry 11/26/21 11/26/21 11/26/21 05:56 06:01 06:06 Temperature Pulse Rate 76 81 62 Respiratory Rate Blood Pressure Blood Pressure [Left] O2 Sat by Pulse 96 97 97 Oximetry 11/26/21 11/26/21 11/26/21 06:11 06:12 06:14 Temperature 98.4 F Pulse Rate 66 64 64 Respiratory Rate Blood Pressure 100/53 Blood Pressure 100/53 [Left] O2 Sat by Pulse 96 Oximetry 11/26/21 11/26/21 11/26/21 06:16 06:21 06:26 Temperature Pulse Rate 63 66 61 Respiratory Rate Blood Pressure Blood Pressure [Left] O2 Sat by Pulse 97 95 95 Oximetry 11/26/21 11/26/21 11/26/21 06:28 06:31 06:35 Temperature Pulse Rate 63 62 58 L Respiratory Rate Blood Pressure 110/55 Blood Pressure [Left] O2 Sat by Pulse 94 96 Oximetry 11/26/21 11/26/21 11/26/21 06:36 06:41 06:42 Temperature Pulse Rate 59 L 66 65 Respiratory Rate Blood Pressure Blood Pressure [Left] O2 Sat by Pulse 98 95 94 Oximetry 11/26/21 11/26/21 11/26/21 06:46 06:48 06:51 Temperature Pulse Rate 62 73 71 Respiratory Rate Blood Pressure Blood Pressure [Left] O2 Sat by Pulse 95 94 98 Oximetry 11/26/21 11/26/21 11/26/21 06:56 07:01 07:06 Temperature Pulse Rate 70 67 74 Respiratory Rate Blood Pressure Blood Pressure [Left] O2 Sat by Pulse 97 97 98 Oximetry 11/26/21 11/26/21 11/26/21 07:13 07:18 07:23 Temperature Pulse Rate 69 65 74 Respiratory Rate Blood Pressure Blood Pressure [Left] O2 Sat by Pulse 99 98 96 Oximetry 11/26/21 11/26/21 11/26/21 07:28 07:33 07:35 Temperature Pulse Rate 80 70 67 Respiratory Rate Blood Pressure 101/55 Blood Pressure [Left] O2 Sat by Pulse 98 97 Oximetry 11/26/21 11/26/21 11/26/21 07:38 07:40 07:43 Temperature Pulse Rate 81 75 74 Respiratory Rate Blood Pressure Blood Pressure [Left] O2 Sat by Pulse 96 93 96 Oximetry 11/26/21 11/26/21 11/26/21 07:48 07:50 07:53 Temperature Pulse Rate 68 73 77 Respiratory Rate Blood Pressure Blood Pressure [Left] O2 Sat by Pulse 95 94 96 Oximetry 11/26/21 11/26/21 11/26/21 07:58 08:03 08:08 Temperature Pulse Rate 77 66 71 Respiratory Rate Blood Pressure Blood Pressure [Left] O2 Sat by Pulse 96 96 97 Oximetry 11/26/21 11/26/21 11/26/21 08:13 08:18 08:23 Temperature Pulse Rate 80 69 71 Respiratory Rate Blood Pressure Blood Pressure [Left] O2 Sat by Pulse 96 95 96 Oximetry 11/26/21 11/26/21 11/26/21 08:28 08:33 08:35 Temperature Pulse Rate 90 73 70 Respiratory Rate Blood Pressure 92/48 Blood Pressure [Left] O2 Sat by Pulse 95 98 Oximetry 11/26/21 11/26/21 11/26/21 08:38 08:43 08:48 Temperature Pulse Rate 67 68 60 Respiratory Rate Blood Pressure Blood Pressure [Left] O2 Sat by Pulse 96 97 97 Oximetry 11/26/21 11/26/21 11/26/21 08:53 08:58 09:03 Temperature Pulse Rate 74 75 76 Respiratory Rate Blood Pressure Blood Pressure [Left] O2 Sat by Pulse 95 98 98 Oximetry 11/26/21 11/26/21 11/26/21 09:08 09:13 09:18 Temperature Pulse Rate 77 76 74 Respiratory Rate Blood Pressure Blood Pressure [Left] O2 Sat by Pulse 97 95 97 Oximetry 11/26/21 11/26/21 11/26/21 09:28 09:33 09:35 Temperature Pulse Rate 56 L 87 86 Respiratory Rate Blood Pressure 105/58 Blood Pressure [Left] O2 Sat by Pulse 99 98 Oximetry 11/26/21 11/26/21 11/26/21 09:38 09:43 09:48 Temperature Pulse Rate 84 76 78 Respiratory Rate Blood Pressure Blood Pressure [Left] O2 Sat by Pulse 98 97 97 Oximetry 11/26/21 11/26/21 11/26/21 09:53 09:58 10:03 Temperature Pulse Rate 84 96 H 101 H Respiratory Rate Blood Pressure Blood Pressure [Left] O2 Sat by Pulse 97 97 98 Oximetry 11/26/21 11/26/21 11/26/21 10:08 10:13 10:18 Temperature Pulse Rate 73 89 81 Respiratory Rate Blood Pressure Blood Pressure [Left] O2 Sat by Pulse 98 97 97 Oximetry 11/26/21 11/26/21 11/26/21 10:23 10:28 10:33 Temperature Pulse Rate 84 91 H 77 Respiratory Rate Blood Pressure Blood Pressure [Left] O2 Sat by Pulse 96 96 97 Oximetry 11/26/21 11/26/21 11/26/21 10:35 10:38 10:43 Temperature Pulse Rate 90 91 H 89 Respiratory Rate Blood Pressure 119/61 Blood Pressure [Left] O2 Sat by Pulse 97 95 Oximetry 11/26/21 11/26/21 11/26/21 10:48 10:53 10:55 Temperature 97.2 F L Pulse Rate 82 94 H 94 H Respiratory 18 Rate Blood Pressure 102/55 Blood Pressure 102/55 [Left] O2 Sat by Pulse 96 98 99 Oximetry 11/26/21 11/26/21 11/26/21 10:58 11:03 11:08 Temperature Pulse Rate 89 88 92 H Respiratory Rate Blood Pressure Blood Pressure [Left] O2 Sat by Pulse 98 96 96 Oximetry 11/26/21 11/26/21 11/26/21 11:13 11:26 11:31 Temperature Pulse Rate 103 H 87 90 Respiratory Rate Blood Pressure Blood Pressure [Left] O2 Sat by Pulse 97 98 97 Oximetry 11/26/21 11/26/21 11/26/21 11:34 11:36 11:41 Temperature Pulse Rate 99 H 92 H 82 Respiratory Rate Blood Pressure 102/58 Blood Pressure [Left] O2 Sat by Pulse 96 97 Oximetry 11/26/21 11/26/21 11/26/21 11:46 11:51 11:56 Temperature Pulse Rate 92 H 89 87 Respiratory Rate Blood Pressure Blood Pressure [Left] O2 Sat by Pulse 97 97 97 Oximetry 11/26/21 11/26/21 11/26/21 12:01 12:06 12:11 Temperature Pulse Rate 88 94 H 92 H Respiratory Rate Blood Pressure Blood Pressure [Left] O2 Sat by Pulse 98 98 98 Oximetry 11/26/21 11/26/21 11/26/21 12:16 12:21 12:26 Temperature Pulse Rate 89 96 H 91 H Respiratory Rate Blood Pressure Blood Pressure [Left] O2 Sat by Pulse 98 97 97 Oximetry 11/26/21 11/26/21 11/26/21 12:31 12:34 12:36 Temperature Pulse Rate 91 H 84 78 Respiratory Rate Blood Pressure 94/55 Blood Pressure [Left] O2 Sat by Pulse 96 97 Oximetry 11/26/21 11/26/21 11/26/21 12:41 12:46 12:51 Temperature Pulse Rate 81 88 82 Respiratory Rate Blood Pressure Blood Pressure [Left] O2 Sat by Pulse 98 96 97 Oximetry 11/26/21 11/26/21 11/26/21 12:56 13:01 13:06 Temperature Pulse Rate 83 78 88 Respiratory Rate Blood Pressure Blood Pressure [Left] O2 Sat by Pulse 98 97 98 Oximetry 11/26/21 11/26/21 11/26/21 13:11 13:16 13:21 Temperature Pulse Rate 109 H 101 H 112 H Respiratory Rate Blood Pressure Blood Pressure [Left] O2 Sat by Pulse 98 98 97 Oximetry 11/26/21 11/26/21 11/26/21 13:26 13:31 13:34 Temperature Pulse Rate 90 109 H 96 H Respiratory Rate Blood Pressure 115/65 Blood Pressure [Left] O2 Sat by Pulse 98 98 Oximetry 11/26/21 11/26/21 11/26/21 13:43 13:48 13:53 Temperature Pulse Rate 98 H 94 H 91 H Respiratory Rate Blood Pressure Blood Pressure [Left] O2 Sat by Pulse 97 98 97 Oximetry 11/26/21 11/26/21 11/26/21 13:58 14:03 14:08 Temperature Pulse Rate 97 H 89 86 Respiratory Rate Blood Pressure Blood Pressure [Left] O2 Sat by Pulse 98 98 98 Oximetry 11/26/21 11/26/21 11/26/21 14:13 14:18 14:28 Temperature Pulse Rate 88 87 88 Respiratory Rate Blood Pressure Blood Pressure [Left] O2 Sat by Pulse 98 97 98 Oximetry 11/26/21 11/26/21 11/26/21 14:33 14:38 14:43 Temperature Pulse Rate 90 95 H 99 H Respiratory Rate Blood Pressure Blood Pressure [Left] O2 Sat by Pulse 97 97 96 Oximetry 11/26/21 11/26/21 11/26/21 14:48 14:53 14:58 Temperature Pulse Rate 97 H 103 H 93 H Respiratory Rate Blood Pressure Blood Pressure [Left] O2 Sat by Pulse 96 98 98 Oximetry 11/26/21 15:03 Temperature Pulse Rate 97 H Respiratory Rate Blood Pressure Blood Pressure [Left] O2 Sat by Pulse 99 Oximetry - Labs Labs: Abnormal Labs 11/24/21 11/24/21 11/24/21 16:10 16:10 19:58 MCV 77 L MCH 25 L Seg Neutrophils % 78.8 H Seg Neutrophils # 8.5 H Urine WBC (Auto) 18.0 H Membranes Rupture Positive A
[2021-11-26] MEDS: CLINDAMYCIN 300 MG CAP PO SCH (18:08)
[2021-11-26] MEDS: ERYTHROMYCIN BASE 250 MG CAPSULE DR PO SCH (22:02)
[2021-11-27] MEDS: ERYTHROMYCIN BASE 250 MG CAPSULE DR PO SCH ×3 (06:02→22:22)
[2021-11-27] MEDS: CLINDAMYCIN 300 MG CAP PO SCH ×4 (06:02→19:14)
--- NOTE | 2021-11-27 08:40 | Progress Note ---
Assessment and Plan - Patient Problems (1) premature rupture of membranes Current Visit: Yes Status: Acute Subjective - Subjective Date of service: 11/27/21 Interval history: 21-year-old -0-1-1 at 35+5 weeks admitted for premature rupture membranes. The patient is currently without any significant complaints. She is having some intermittent contractions but denies any vaginal bleeding. She remains afebrile. Patient reports: no new complaints Objective - Vital Signs Vital Signs: Vital Signs - 12hr 11/26/21 11/26/21 11/26/21 22:05 22:09 22:14 Temperature Pulse Rate 56 L 71 81 O2 Sat by Pulse 23 L 97 97 Oximetry 11/26/21 11/26/21 11/26/21 22:19 22:24 22:29 Temperature Pulse Rate 78 83 88 O2 Sat by Pulse 97 96 97 Oximetry 11/26/21 11/26/21 11/26/21 22:34 22:39 22:44 Temperature Pulse Rate 84 83 80 O2 Sat by Pulse 96 97 97 Oximetry 11/27/21 06:04 Temperature 97.9 F Pulse Rate O2 Sat by Pulse Oximetry - Labs Labs: Abnormal Labs 11/24/21 11/24/21 11/24/21 16:10 16:10 19:58 MCV 77 L MCH 25 L Seg Neutrophils % 78.8 H Seg Neutrophils # 8.5 H Urine WBC (Auto) 18.0 H Membranes Rupture Positive A
[2021-11-27] MEDS: NITROFURANTOIN MONOHYD/M-CRYST 100 MG CAP PO SCH (09:32)
[2021-11-27] MEDS: PRENATAL VIT27-FE FUMARATE-FOLIC ACID VIT TAB PO SCH (09:34)
[2021-11-28] MEDS: CLINDAMYCIN 300 MG CAP PO SCH ×3 (03:04→18:23)
[2021-11-28] MEDS: ERYTHROMYCIN BASE 250 MG CAPSULE DR PO SCH ×3 (06:14→21:45)
[2021-11-28] MEDS: PRENATAL VIT27-FE FUMARATE-FOLIC ACID VIT TAB PO SCH ×2 (10:59→11:01)
[2021-11-28] MEDS: NITROFURANTOIN MONOHYD/M-CRYST 100 MG CAP PO SCH ×2 (11:01→21:45)
[2021-11-28 11:57] LABS: Hematocrit 36.4 % (30.3-42.9); Hemoglobin 12.1 gm/dl (10.1-14.3); Mean Corpuscular HGB Conc 33 % (30-34); Mean Corpuscular Volume 78 fl (79-97); Platelet Count 235 K/mm3 (140-440); Red Cell Distribution Width 15.3 % (13.2-15.2)
--- NOTE | 2021-11-28 14:22 | Progress Note ---
Assessment and Plan A: IUP at 35w5d PPROM on 11/24/21 8 am on latency antibiotics,s s/p betamethasone x 2 Previous Scoliosis Asthma Glucose Intolerance Cystitis GBS unknown- PCN allergy P: Continue current management Pt consented for repeat section Charge nurse and anesthesia aware of plan for surgery tomorrow morning NPO after midnight Subjective - Subjective Date of service: 11/28/21 Principal diagnosis: IUP at 35w6d, PPROM, Previous Interval history: Pt anxious about spinal during her section tomorrow. She also notes a h/o scoliosis. She has not obstetric complaints. Patient reports: loss of fluid, movement normal, no new complaints, no vaginal bleeding, no contractions Objective - Vital Signs Vital Signs: Vital Signs - 12hr 11/28/21 11/28/21 11/28/21 08:49 08:50 08:55 Temperature 98.6 F Pulse Rate 80 80 46 L Respiratory 20 Rate Blood Pressure 106/58 Blood Pressure 106/58 [Left] O2 Sat by Pulse 81 L Oximetry O2 Sat by Pulse Oximetry [ Bilateral Throughout] 11/28/21 11/28/21 11/28/21 08:56 08:57 09:01 Temperature Pulse Rate 78 62 Respiratory Rate Blood Pressure Blood Pressure [Left] O2 Sat by Pulse 98 98 Oximetry O2 Sat by Pulse 97 Oximetry [ Bilateral Throughout] 11/28/21 11/28/21 11/28/21 09:04 09:06 09:11 Temperature Pulse Rate 72 68 71 Respiratory Rate Blood Pressure Blood Pressure [Left] O2 Sat by Pulse 92 98 99 Oximetry O2 Sat by Pulse Oximetry [ Bilateral Throughout] 11/28/21 11/28/21 11/28/21 09:16 09:21 09:26 Temperature Pulse Rate 68 71 71 Respiratory Rate Blood Pressure Blood Pressure [Left] O2 Sat by Pulse 99 99 100 Oximetry O2 Sat by Pulse Oximetry [ Bilateral Throughout] 11/28/21 11/28/21 11/28/21 09:31 09:36 09:41 Temperature Pulse Rate 63 80 78 Respiratory Rate Blood Pressure Blood Pressure [Left] O2 Sat by Pulse 97 98 98 Oximetry O2 Sat by Pulse Oximetry [ Bilateral Throughout] 11/28/21 11/28/21 11/28/21 09:46 09:51 09:56 Temperature Pulse Rate 78 77 73 Respiratory Rate Blood Pressure Blood Pressure [Left] O2 Sat by Pulse 96 97 97 Oximetry O2 Sat by Pulse Oximetry [ Bilateral Throughout] 11/28/21 11/28/21 11/28/21 10:01 10:06 10:11 Temperature Pulse Rate 74 62 72 Respiratory Rate Blood Pressure Blood Pressure [Left] O2 Sat by Pulse 97 97 96 Oximetry O2 Sat by Pulse Oximetry [ Bilateral Throughout] 11/28/21 11/28/21 11/28/21 10:16 10:21 10:26 Temperature Pulse Rate 64 71 67 Respiratory Rate Blood Pressure Blood Pressure [Left] O2 Sat by Pulse 97 98 98 Oximetry O2 Sat by Pulse Oximetry [ Bilateral Throughout] 11/28/21 11/28/21 11/28/21 10:31 10:36 10:41 Temperature Pulse Rate 80 77 75 Respiratory Rate Blood Pressure Blood Pressure [Left] O2 Sat by Pulse 97 99 98 Oximetry O2 Sat by Pulse Oximetry [ Bilateral Throughout] 11/28/21 11/28/21 11/28/21 10:46 10:51 10:56 Temperature Pulse Rate 85 74 70 Respiratory Rate Blood Pressure Blood Pressure [Left] O2 Sat by Pulse 98 99 98 Oximetry O2 Sat by Pulse Oximetry [ Bilateral Throughout] 11/28/21 11:01 Temperature Pulse Rate 86 Respiratory Rate Blood Pressure Blood Pressure [Left] O2 Sat by Pulse 99 Oximetry O2 Sat by Pulse Oximetry [ Bilateral Throughout] - Exam Breasts: deferred Abdomen: Present: soft (obese ) Uterus: Present: normal (gravid ). Absent: tenderness FHR: auscultation normal Uterine Contraction Monitor Mode: External Uterine Contraction Pattern: Irregular Uterine Tone Measurement Phase: Resting Extremities: edema (trace ) - Labs Labs: Abnormal Labs 11/24/21 11/24/21 11/24/21 16:10 16:10 19:58 WBC MCV 77 L MCH 25 L RDW Seg Neutrophils % 78.8 H Seg Neutrophils # 8.5 H Urine WBC (Auto) 18.0 H Membranes Rupture Positive A 11/28/21 10:46 WBC 11.4 H MCV 78 L MCH 26 L RDW 15.3 H Seg Neutrophils % Seg Neutrophils # Urine WBC (Auto) Membranes Rupture Laboratory Results - last 24 hr 11/28/21 10:46 WBC 11.4 H RBC 4.70 Hgb 12.1 Hct 36.4 MCV 78 L MCH 26 L MCHC 33 RDW 15.3 H Plt Count 235
--- NOTE | 2021-11-29 08:01 | Anesthesia Day of Surgery ---
Anesthesia Day of Surgery - Day of Surgery Patient Examined: Yes Patient H&P Reviewed: Yes Patient is NPO: Yes
--- NOTE | 2021-11-29 08:04 | Anesthesia Consultation ---
Anesthesia Consult and Med Hx Date of service: 11/29/21 - Airway Anesthetic Teeth Evaluation: Poor ROM Head & Neck: Adequate Mental/Hyoid Distance: Adequate Mallampati Class: Class II Intubation Access Assessment: Probably Good - Pulmonary Exam CTA: Yes - Cardiac Exam Cardiac Exam: RRR - Pre-Operative Health Status ASA Pre-Surgery Classification: ASA3 Proposed Anesthetic Plan: Spinal - Pulmonary Hx Smoking: No Hx Asthma: Yes Hx Respiratory Symptoms: No SOB: No COPD: No Hx Pneumonia: No Hx Sleep Apnea: No - Cardiovascular System Hx Hypertension: No Hx Coronary Artery Disease: No Hx Heart Attack/AMI: No Hx Angina: No Hx Percutaneous Transluminal Coronary Angioplasty (PTCA): No Hx Cardia Arrhythmia: No Hx Pacemaker: No Hx Internal Defibrillator: No Hx Valvular Heart Disease: No Hx Heart Murmur: No Hx Peripheral Vascular Disease: No - Central Nervous System Hx Neuromuscular Disorder: No Hx Seizures: No CVA: No Hx Back Pain: No Hx Psychiatric Problems: No - Gastrointestinal Hx Ulcer: No Hx Gastroesophageal Reflux Disease: Yes - Endocrine Hx Renal Disease: No Hx End Stage Renal Disease: No Hx Cirrhosis: No Hx Liver Disease: No Hx Insulin Dependent Diabetes: No Hx Non-Insulin Dependent Diabetes: No Hx Thyroid Disease: No Hx Hypothyroidism: No Hx Hyperthyroidism: No - Hematic Hx Anemia: No Hx Sickle Cell Disease: No - Other Systems Hx Alcohol Use: No Hx Substance Use: No Hx Cancer: No Hx Obesity: Yes
[2021-11-29] MEDS ORDERED: GENTAMICIN 0 MG in SODIUM CHLORIDE 0.9% 100 ML IV ONE (08:12)
[2021-11-29] MEDS ORDERED: LACTATED RINGERS 1,000 ML IV SCH (08:15)
[2021-11-29] MEDS ORDERED: MORPHINE PF 10MG/10 ML AMPULE ONE (08:18)
[2021-11-29] MEDS ORDERED: BUPIVACAINE/PF (0.5%) 5 MG/1 ML 30 ML VIAL INFILTRATI ONE (08:19)
[2021-11-29] MEDS ORDERED: ONDANSETRON 4 MG/2 ML INJ ONE ×2 (08:20)
[2021-11-29] MEDS ORDERED: GENTAMICIN/NS 120MG/100ML 120 MG/100 ML BAG IV SCH (08:30)
[2021-11-29] MEDS ORDERED: BICITRA ORAL LIQD 30ML PO SCH (08:30)
[2021-11-29] MEDS ORDERED: METOCLOPRAMIDE 10 MG/2 ML INJ IV SCH (08:30)
[2021-11-29] MEDS ORDERED: FAMOTIDINE 20 MG/2 ML INJ IV SCH (08:30)
[2021-11-29] MEDS ORDERED: OXYTOCIN DRIP 30 UNITS/500 ML BAG IV SCH ×2 (09:00→13:27)
[2021-11-29] MEDS ORDERED: PHENYLEPHRINE/NS 1,000 MCG/10 ML SYRINGE (OR USE) IV ONE (09:26)
[2021-11-29] MEDS ORDERED: ePHEDrine SULFATE 50 MG/1 ML INJ ONE (09:39)
[2021-11-29] MEDS ORDERED: METHYLERGONOVINE MALEATE 0.2 MG/ML VIAL IM ONE (09:41)
[2021-11-29] MEDS ORDERED: SODIUM CHLORIDE 0.9% IRR 1,500 ML BOTTLE IR ONE (10:00)
[2021-11-29] MEDS ORDERED: WATER FOR IRRIG STERILE 1,500 ML BOTTLE IR ONE (10:00)
[2021-11-29] MEDS ORDERED: TRANEXAMIC ACID 1,000 MG/10 ML ONE (10:11)
[2021-11-29] MEDS ORDERED: SODIUM CHLORIDE 0.9% 100 ML ONE (10:29)
--- NOTE | 2021-11-29 11:10 | Procedure Note ---
OB Delivery Note - Delivery Date of Delivery: 11/29/21 Surgeon: TERESA FELICIANO Estimated blood loss: other (652 mL) - Section Preop diagnosis: repeat , other (PPROM, Prolonged ROM ) Postop diagnosis: same section procedure: section, repeat low transverse Disposition: PACU Complications: uterine atony Narrative: Please see operative report - Infant A at 1 minute: 9 at 5 minutes: 9 Gender: Male (2380g (5lb 4oz) @ 1014 am)
--- NOTE | 2021-11-29 11:11 | Operative Report ---
Operative Report Operative Report: Date of procedure: November 29, 2021 Preoperative diagnosis: 1) IUP at 36w0d 2) PPROM 3) Prolonged ROM 4) Previous x 1 5) Obesity Postoperative diagnosis: Same Procedure: Repeat low transverse section Surgeon: Miesha Casiano M.D. Anesthesia: Regional Findings: 1) Viable male , Apgars 9 and 9, weight 2380 g, (5 lb 4 oz) in cephalic presentation. Nuchal cord x 2, Body cord x 1. 2) Normal-appearing uterus ovaries and tubes Quantitative blood loss: 652 mL IV fluids:2200 mL Urine output: 350 mL, clear at the end of the procedure Drains: Swain to gravity Specimens: None Complications:None. Counts correct x 3 Disposition: Stable to PACU Indication for procedure: Pt is a 21 year old female at 36w0d with a h/o one prior secton who presents with PPROM and prolonged rupture of membranes. The decision was made to proceed with section. Operation in detail: After the risks, benefits, alternatives and complications were explained to the patient she gave informed consent for the procedure. She was subsequently taken to the operating room where regional anesthesia was noted to be adequate. She was placed in the dorsal supine position with leftward tilt and prepped and draped in a normal sterile fashion. heart tones were noted prior to incision. A timeout was performed. A Pfannenstiel skin incision was made with the knife and carried down to the layer of the fascia with the Bovie. The fascia was incised in the midline and the fascial incision was extended bilaterally with the Bovie. The fascial incision was then stretched. The rectus muscles were then in the midline for adequate visualization. The peritoneum was then entered bluntly. The peritoneal incision was extended with good visualization of the bladder. The peritoneal incision was then stretched. An Tiburcio retractor was placed. The bladder blade was then placed. A transverse incision was made in the lower uterine segment with a knife and extended bilaterally with the bandage scissors. head delivered with ease, followed by shoulders and body. bulb suctioned at delivery. Cord clamped and cut. handed to NICU staff in attendance. Cord blood was collected. The placenta was then delivered manually. The uterus was then exteriorized and cleared of all clots and debris. The hysterotomy was then reapproximated with 0 Monocryl in a running locked fashion. A second layer of the same suture was used in imbricating fashion. The hy sterotomy was inspected and hemostasis was noted. The gutters were irrigated and cleared of all clots and debris. The uterus was placed back into the peritoneal cavity. The hysterotomy was again inspected and noted to be hemostatic. Surgicel was placed over the hysterotomy. The Tiburcio retractor was removed. The peritoneum was reapproximated with 0 Monocryl in a running fashion incorporating the rectus muscles. Surgicel was placed over the rectus muscles. The fascia was reapproximated with 0 Vicryl in a running fashion. The subcutaneous tissue was reapproximated in two layers first with 0 Monocryl, and the second layer with 3-0 Vicryl in a running fashion. The skin was reapproximated with 3-0 Monocryl in a subcuticular fashion. The incision was then covered with steri strips and a pressure dressing. The procedure was then ended. The patient tolerated the procedure well and was taken to the PACU in stable condition. All instrument, lap, and needle counts were correct 3.
[2021-11-29] MEDS ORDERED: KETOROLAC 30 MG/1 ML INJ ONE (11:18)
--- NOTE | 2021-11-29 11:30 | Progress Note ---
Spinal Anesthesia Block - Spinal Anesthesia Block Start Time: :30 Stop Time: :34 Performed by:: ROBERT KENNEDY Procedure: Patient IDed, H&P reviewed, all questions and concerns were answered, and consent was signed. Timeout was performed at bedside. Patient in sitting position. Sterile prep and drape was performed. [3] ml of 1% lidocaine skin wheal at L[3]- L [4] x 1 attempt. Needle introducer advanced. 25 gauge spinal needle advanced. Clear, free flowing CSF. negative blood, negative paresthesia. Spinal dose given. All needles removed. Patient tolerated procedure.
--- NOTE | 2021-11-29 11:32 | Progress Note ---
Regional Anesthesia Block - Regional Anesthesia Block Start Time: 11:11 Stop Time: 11:17 Performed By:: ROBERT KENNEDY Procedure: Patient consented for TAP block for post surgical pain management. Patient identified, monitors placed, and time out performed. TAP identified bilaterally via ultrasound. Skin prepped bilaterally with [chlorhexidine] and [22g stimuplex] needle advanced to the TAP. [Marcaine 0.22% 35ml] injected under ultrasound guidance on the [left] side. [Marcaine 0.22% 35ml] injected under ultrasound guidance on the [right] side. Negative aspiration every 5mL, No change in heart rate or rhythm. Patient tolerated the procedure well. No apparent complications seen.
[2021-11-29] MEDS ORDERED: ACETAMINOPHEN 325 MG TAB PO PRN (13:27)
[2021-11-29] MEDS ORDERED: D5W/LACTATED RINGERS 1,000 ML IV SCH (13:27)
[2021-11-29] MEDS ORDERED: LANOLIN/ZINC/DIMETHICONE (LANSINOH) 7 GM TP PRN (13:27)
[2021-11-29] MEDS ORDERED: HYDROmorphone 0.5 MG/0.5 ML INJ IV PRN ×2 (13:27)
[2021-11-29] MEDS ORDERED: oxyCODONE /ACETAMINOPHEN 5-325MG TAB PO PRN (13:27)
[2021-11-29] MEDS ORDERED: ONDANSETRON 4 MG/2 ML INJ IV PRN (13:27)
[2021-11-29] MEDS ORDERED: WITCH HAZEL/ GLYCERIN PAD TP PRN (13:27)
[2021-11-29] MEDS ORDERED: IBUPROFEN 800 MG TAB PO PRN (13:27)
[2021-11-29] MEDS ORDERED: NALOXONE 0.4 MG/1 ML INJ IV PRN (13:27)
[2021-11-29] MEDS ORDERED: SIMETHICONE 80 MG CHEW TAB PO PRN (13:27)
[2021-11-29] MEDS: KETOROLAC 30 MG/1 ML INJ IV SCH (15:52)
[2021-11-29] MEDS: CLINDAMYCIN 600 MG/50 mL 600 MG/50 ML BAG IV SCH (17:29)
[2021-11-30 00:45] LABS: Hematocrit 36.1 % (30.3-42.9); Hemoglobin 11.5 gm/dl (10.1-14.3)
[2021-11-30] MEDS: KETOROLAC 30 MG/1 ML INJ IV SCH ×2 (01:45→07:09)
[2021-11-30] MEDS: CLINDAMYCIN 600 MG/50 mL 600 MG/50 ML BAG IV SCH (03:37)
--- NOTE | 2021-11-30 09:01 | Progress Note ---
Assessment and Plan A: POD#1 s/p repeat ; PPROM on 11/24/21 8 am on latency antibiotics,s s/p betamethasone x 2 Scoliosis Asthma Glucose Intolerance Cystitis GBS unknown- PCN allergy P: Continue current management Routine postop care Subjective - Subjective Date of service: 11/30/21 Principal diagnosis: POD 1 s/p repeat , IUP at 35w6d, PPROM, Previous Interval history: No overnight events. + flatus. No bowel movement. Patient reports: appetite normal, voiding normally, pain well controlled, flatus, ambulating normally, no bowel movement [place]: doing well Objective - Vital Signs Latest vital signs: Vital Signs Temp Pulse Resp BP Pulse Ox Pulse Ox 11/30/21 06:10 98.3 F 72 18 91/57 99 11/30/21 01:24 98.9 F 81 18 99/64 99 11/29/21 21:43 97.9 F 66 16 97/70 99 11/29/21 20:40 98 11/29/21 16:19 98.4 F 57 L 18 99/59 98 11/29/21 12:55 98 11/29/21 12:54 97.8 F 65 18 114/77 98 11/29/21 12:25 98.7 F 58 L 14 118/72 99 11/29/21 12:10 59 L 13 117/73 98 11/29/21 11:57 56 L 15 115/71 99 11/29/21 11:40 58 L 12 124/72 100 11/29/21 11:35 59 L 11 L 137/74 99 11/29/21 11:30 70 14 136/74 99 11/29/21 11:25 98.5 F 61 12 131/91 99 Intake and Output 11/29/21 11/30/21 11/30/21 22:59 06:59 14:59 Intake Total 240 530 Output Total 1999 1225 Balance -1760 -695 Intake: IV 50 CLEOCIN 600 MG/50 mL 600 50 mg In 50 ml @ 100 mls/hr IV Q8H [facility] Rx#:[id number] Intake, Free Water 240 480 Output: Urine 1999 1225 Indwelling Catheter 1999 975 Void 250 Other: Total, Output Amount 1400 1000 - Exam Breasts: Present: deferred Abdomen: Present: soft Uterus: Present: fundal height below umbilicus Extremities: Present: edema (trace) Incision: Present: dressed
[2021-11-30] MEDS: LACTULOSE 20 GM/30 ML ORAL LIQD PO SCH (10:12)
[2021-11-30] MEDS ORDERED: MEASLES, MUMPS & RUBELLA 12,500 UNIT/0.5 ML VACCINE SUB-Q ONE (12:09)
[2021-11-30] MEDS ORDERED: TETANUS,DIPH,PERTUSS(ACELL) VACCINE 0.5 ML SYRINGE IM ONE (12:09)
[2021-11-30] MEDS: IBUPROFEN 800 MG TAB PO SCH ×2 (14:10→20:32)
[2021-12-01] MEDS: LACTULOSE 20 GM/30 ML ORAL LIQD PO SCH (00:01)
[2021-12-01] MEDS: IBUPROFEN 800 MG TAB PO SCH (06:39)
--- NOTE | 2021-12-01 13:20 | Progress Note ---
Assessment and Plan - Patient Problems (1) premature rupture of membranes Current Visit: Yes Status: Acute (2) delivery delivered Current Visit: No Status: Acute Plan to address problem: Patient doing well Discharge home Subjective - Subjective Date of service: 12/01/21 Principal diagnosis: POD 1 s/p repeat , IUP at 35w6d, PPROM, Previous Interval history: The patient is postoperative day #2 status post a repeat delivery. She is currently without any complaints. She is tolerating regular diet and her pain is well controlled. Patient reports: appetite normal, voiding normally, pain well controlled [place]: doing well Objective - Vital Signs Latest vital signs: Vital Signs Temp Pulse Resp BP Pulse Ox Pulse Ox 12/01/21 08:43 98.5 F 75 20 115/76 97 12/01/21 00:56 97.7 F 75 18 104/59 96 11/30/21 20:15 96 11/30/21 18:07 98.0 F 97 H 18 120/71 94 11/30/21 14:10 16 Intake and Output 11/30/21 12/01/21 12/01/21 22:59 06:59 14:59 Intake Total 240 240 320 Balance 240 240 320 Intake: Oral 240 240 320 Other: Total, Intake Amount 240 120 120 # Voids Void 1 1 1 Weight 81.647 kg Patient Weight 12/02/21 06:59 Weight 81.647 kg
--- NOTE | 2021-12-01 13:21 | Discharge Summary ---
Providers - Providers Date of Admission: 11/24/21 18:14 Date of discharge: 12/01/21 Attending physician: TERESA FELICIANO 11/29/21 13:27 Consult to Financial Management [CONS] Routine Reason For Exam: Primary care physician: TERESA FELICIANO Hospitalization Reason for admission: rupture of membranes Delivery: Procedure: section, repeat low transverse Discharge diagnosis: delivery Hospital course: The patient was admitted for premature rupture membranes. She had a repeat delivery. Please see operative note for details. Her postoperative course was uneventful. Condition at discharge: Good Disposition: 01 HOME / SELF CARE / HOMELESS - Discharge Diagnoses (1) premature rupture of membranes Status: Acute (2) delivery delivered Status: Acute Plan - Discharge Medications Prescriptions: Ibuprofen [Motrin] 800 mg PO Q8HR PRN #60 tablet PRN Reason: Pain , Severe (7-10) oxyCODONE /ACETAMINOPHEN [Percocet 5/325] 1 tab PO Q6HR PRN #30 tablet PRN Reason: Pain - Provider Discharge Summary Activity: no sex for 6 weeks, no heavy lifting 4 weeks, no strenuous exercise Diet: routine Instructions: routine Additional instructions: [] Smoking cessation referral if applicable(refer to patient education folder for contact #) [] Refer to [facility]'s [facility] Booklet Call your doctor immediately for: * Fever > 100.5 * Heavy vaginal bleeding ( >1 pad per hour) * Severe persistent headache * Shortness of breath * Reddened, hot, painful area to leg or breast * Drainage or odor from incision. * Keep incision clean and dry at all times and follow doctor's instructions regarding bathing/showering Schedule postoperative visit in 2 weeks - Follow up plan
[2021-12-01 16:49] VITALS: BP 111/66
== END 2021-12-01 17:00 | disposition home or self-care (01) | DRG 765 ==
LOC: TRG 14:42 → APU 14:45 → LD 17:45 → UNDOADMIN 17:45 → TRG 17:45 → LD 18:14 → APU 11-29 09:17 → OB 11-29 12:43
PROVIDERS: ADMIT Obstetrics & Gynecology; ATTEND Obstetrics & Gynecology
PROC: 10D00Z1 Extraction of Products of Conception, Low, Open Approach (ICD-10-PCS; principal; 2021-11-29)
PROC: 3E0234Z Introduction of Serum, Toxoid and Vaccine into Muscle, Percutaneous Approach (ICD-10-PCS; 2021-11-30)
PROC: 3E0134Z Introduction of Serum, Toxoid and Vaccine into Subcutaneous Tissue, Percutaneous Approach (ICD-10-PCS; 2021-11-30)
DX: O60.14X0 Preterm labor third trimester with preterm delivery third trimester, not applicable or unspecified (principal); O75.3 Other infection during labor; O34.211 Maternal care for low transverse scar from previous cesarean delivery; O99.52 Diseases of the respiratory system complicating childbirth; J45.909 Unspecified asthma, uncomplicated; Z3A.35 35 weeks gestation of pregnancy; Z88.0 Allergy status to penicillin; Z20.822 Contact with and (suspected) exposure to COVID-19; O42.913 Preterm premature rupture of membranes, unspecified as to length of time between rupture and onset of labor, third trimester; N30.90 Cystitis, unspecified without hematuria; O99.62 Diseases of the digestive system complicating childbirth; O99.214 Obesity complicating childbirth; O69.81X0 Labor and delivery complicated by cord around neck, without compression, not applicable or unspecified; Z37.0 Single live birth; K21.9 Gastro-esophageal reflux disease without esophagitis; Z23 Encounter for immunization
CPT/HCPCS: 36415; 76815; 76819; 81001; 84112; 85014; 85018; 85025; 85027; 86850; 86900; 86901; 87086; G0378; J3490; J7121; J7502; J0702; J1364; J1580; J1885; J2274; J2370; J2405; J2765; J7120; U0003